=== PATIENT | female | born 1930 | race African-American/Black ===

== ENCOUNTER 2019-05-21 11:36 | Outpatient (CLI) | payer MEDICARE ==
--- NOTE | 2019-05-21 14:15 | MRI ---
MRI BRAIN WITH AND WITHOUT IV CONTRAST: HISTORY: Paresthesias of skin. Numbness in the left arm and hand and memory loss COMPARISON: 12/13/2011 CORRELATION: None FINDINGS: No restricted diffusion is seen. No evidence of infarct, hemorrhage, mass, midline shift or abnormal extra-axial fluid collections is noted. No abnormal postcontrast enhancement is seen. The ventricular size is appropriate and the basilar cisterns are patent. Cortical atrophy is present. 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 There is mucosal disease in the paranasal sinuses. IMPRESSION: No evidence of acute intracranial process or mass.
== END 2019-05-21 11:37 | disposition home or self-care (01) ==
LOC: SCSMRI 11:36
PROVIDERS: ATTEND Family Medicine
DX: R20.2 Paresthesia of skin (principal); R41.3 Other amnesia; M79.609 Pain in unspecified limb
CPT/HCPCS: 70553; 82565